=== PATIENT | female | born 1960 | race Asian ===

== ENCOUNTER 2019-07-24 14:03 | Inpatient (IN) | payer BC ==
[~2019-07-24] VITALS: Ht 160 cm; Wt 55.7 kg
[2019-07-24 14:55] VITALS: BP 117/75
--- NOTE | 2019-07-24 14:56 | NUR ---
PT ARRIVES TO FLOOR VIA CART ACCOMPNIED BY AMBULANCE PERSONEL FROM [facility]. PER REPORT CALLED FROM [facility] IN ER PT BROUGHT IN BY FOR INCREASING CONFUSION,DISORIENTATION AT HOME-PT REPORTED TO HAVE A SEIZURE MAY 2019 AND SINCE THAT TIME HAS HAD POOR SLEEP,DISORIENTATION AND "TRANCE-LIKE" BEHAVIOR PER AFFIDAVIT FROM . MADE COMMENTS TO THAT SHE WANTED TO HURT HERSELF AND STATED SHE "COULDN'T GO ON LIKE THIS ANYMORE" PT DENIES S/SJ[facility] DURING ADMIT INTERVIEW-IS TEARFUL AND WITHDRAWN PULLING BLANKET OVER HEAD-STATES SEVERAL TIMES "I HAVE BEEN HAVING TROUBLE WITH MY MEMORY I THINK IT IS THAT SEIZURE MEDICATION I HAVE BEEN ON IT TOO LONG" DENIES C/O PAIN/DISCOMFORT.GAIT STEADY WITHOUT ASSISITVE DEVICES
[2019-07-24] MEDS ORDERED: KEPPRA XR500 MG PO (17:06)
[2019-07-24] MEDS ORDERED: VALIUM5 MG PO (17:08)
[2019-07-24 19:30] VITALS: BP 115/67
[2019-07-24 19:30] LABS: HEMATOCRIT 41.1 % (37.0-47.0); HEMOGLOBIN 13.6 gm/dL (12.0-15.0); MCH 31.4 pg (26.0-34.0); MCHC 33.1 g/dL (28.0-37.0); RBC 4.33 mil/uL (4.20-5.00); RDW 13.1 % (10.5-14.5); WBC 5.4 thou/uL (4.0-11.0)
[2019-07-24 19:43] LABS: ALBUMIN 3.5 g/dL (3.4-5.0); CALCIUM 8.8 mg/dL (8.5-10.1); CREATININE 1.1 mg/dL (0.6-1.0); MAGNESIUM 2.3 mg/dL (1.8-2.4); POTASSIUM 4.1 mmol/L (3.5-5.1); TOTAL BILIRUBIN 0.9 mg/dL (<0.1-1.0)
--- NOTE | 2019-07-24 23:13 | NUR ---
Care assumed of patient at 1915: Patient standing in dayroom at start of shift but quickly retired to bed. Patient laying in bed during nursing assessment. Patient alert and oriented to person and place. Patient confused and forgetful on current time and situation. Patient denies pain or discomfort. Denies SI/HI/AH/VH. Patient holding blanket over her face during most of assessment. Patient has 2 reddened spots to top of forehead. However, her thumbs were resting on the 2 reddened spots before skin was assessed. Patient asked nurse to turn light off due to it "burning her skin". Light was turned off. Patient had difficulty making eye contact during assessment. Patient having concrete thinking in that her face is burning off and that she is admitted due to her seizure medication. Patient states that her seizure medication makes her "act this way". Patient admits that she doesn't feel "normal" and "feels goofy". Patient reluctant to take HS medication at first but did comply. Ate 100% HS snack. Patient face appears oily and states that she needs more lotion. Patient has lotion available in her room which was shown to her. Patient states she needs "the prescription stuff". Patient has been resting quietly in her bed this evening.
--- NOTE | 2019-07-25 05:45 | NUR ---
Patient approached the nurses station demanding a sleeping pill at 0500. Patient educated on current time but that she does have a coughing pill available if she desired. Patient became irritable immediately. Patient then started to demand her clothing. Demanding breakfast. Exit seeking. Pushing and banging on exit doors. Patient educated on need to care for other patients then a look for her clothing would take place. Patient also educated the need to speak with the doctor today regarding her inability to sleep. Patient then went and hid in another patient's room behind the door. Security staff x3 and nursing staff x3 searched for patient. Patient screaming, fighting, escorted to the quiet room. Patient requested to use the bathroom. Patient allowed with female staff x2. Patient sat in bathroom for 10+ minutes and needed escorted to quiet room for injection to be administered. Required to be held for injection due to hitting, punching, kicking. Order obtained for seclusion at 0528. Patient banging the door, screaming, disrupting environment. Calling staff very vulgar, profanity names. Gissel Beckman RN, laborer hide house present. Staff currently standing 1:1 outside door to monitor safety.
[2019-07-25 09:15] VITALS: BP 144/78
--- NOTE | 2019-07-25 10:04 | NUR ---
Patient approached NIGHT ORDER SELECTOR at nurses station asking for assistance dialing phone number with unit wireless phone as she does not have her glasses with her. A few minutes later, pt was heard in her room beligerently yelling while using phone. NIGHT ORDER SELECTOR and HEALTH DIRECTOR approached pt in her room to give her a warning that phone privileges could be revoked if patient does not appropriately use telephone. NIGHT ORDER SELECTOR and HEALTH DIRECTOR exited room as pt stood up and slammed her door shut and continued to yell. Staff re entered room to gather phone at which time pt threw phone to ground knocking batteries and back of phone apart. Pt was warned that she was destructing hospital property. Upon hearing this, pt sat "properly on bed" crossing her hands, stating, "well, I just dropped it. It was an accident" then began cursing NIGHT ORDER SELECTOR and HEALTH DIRECTOR to leave room.
[2019-07-25 10:16] VITALS: BP 144/78
--- NOTE | 2019-07-25 12:45 | NUR ---
New order recieved from, Dr. Zavala, read back and verified. 1) Nursing may suspend phone privileges if patient continues to abuse phone privileges i.e. yelling on the phone and throwing the phone.
--- NOTE | 2019-07-25 13:11 | NUR ---
SW met with spouse Cristopher and pt with Dr chauhan. This included meds review and social HX. SW completed the intake assessent and TP. I twas established that pt and her spouse have been self adjusting medication dosages, and have not conuslted a psych Dr for her mental health needs. Pt was seeing a therapist very briefly but spouse is not confinced it was " working ". Pt was hostile and blamed spouse for all of the symptoms of her obessions and physical concerns. SW provided education and reassurance about the inpt psych stay and the importance to adhere to Dr recommedations.
--- NOTE | 2019-07-25 13:48 | NUR ---
Assumed care at 0700. Patient alert and oriented x4. Gets easily agitated over small stuff: breakfast is two minutes late, a nurse didnt give her what she wanted. She keeps on saying that she doesn't like it here she needs to go to her house where there are no rules. She complains that we are giving her Keprra and its the one that is messing up with her mind that she is the way she is right now. visiteed today and she kept yelling at him throught the visit. Earlier today she was given a phone to talk to the spouse but she kept on cursing, shouting, and yelling on phone. BAG BUILDER requested her to stop yelling but she got so mad and threw the phone down and the part shattered allover on the floor. There is an order for patients owho cant use the phone appropriately to loose the privilige until they improve. Patients has been cursing the nurse and telling her to back to her country. Physician is aware of her cursing and being disrespectiful to staff. Dr. Zavala is working on changing her medication to see if that will help with her mood as well taking care of the seizures. Will continue with the plan of care.
--- NOTE | 2019-07-25 17:18 | EKG ---
[facility] [place] [address] ELECTROCARDIOGRAM REPORT Name: POLLY DE ANDA [facility] M.R[facility] [id number] Admission: 07/24/19 Attend Phys: Fidel Zavala DO Discharge: Date of : 56 Report #: [id number] THIS REPORT FOR: cc: FAM - Family physician unknown FAM - Family physician unknown Yonatan Aparicio MD ~ THIS REPORT FOR: //name// [facility] Test Date: 2019-07-24 Test Time: 19:26:55 Pat Name: POLLY DE ANDA Department: Room: [facility] B Gender: F Health Technical Writer: Ashley WELDON : 1960 Requested By: Gallo Vaughan Order Number: [id number] MD: Yonatan Aparicio Measurements Intervals [place] Rate: 80 P: 45 NC: 121 QRS: 54 QRSD: 79 T: 53 QT: 389 QTc: 449 Interpretive Statements Sinus rhythm No previous ECG available for comparison Electronically Signed On 07-25-2019 17:16:53 CDT by Yonatan Aparicio [email or web address] <ELECTRONICALLY SIGNED> By: Yonatan Aparicio MD 07/25/191715 25 25 Yonatan Aparicio MD /EPI
--- NOTE | 2019-07-25 18:25 | NUR ---
Patient continues to be verbally abusive to the nurse. She tried to hit the nurse this afternoon by slammed the door and throwing a punch. because she the nurse refused to give the phone. This prompted her curse more and telling the nurse "Go back to your country you came here because of poverty to come and use [place] foodstamps and exhaust the country econommy." Patient went to the room for few minutes then dinner time she came out and she was more calm. Patient keeps coming to the nurse station asking for thermostat adjustments. When we turn it down she complain it's too cold, then when we turn it up she complains its cold. Dr. Zavala has talked to her this evening and she says that she will improve.Will continue with the plan of care.
[2019-07-25 19:23] VITALS: BP 103/67
--- NOTE | 2019-07-26 01:40 | NUR ---
Care assumed of patient at 191: Patient standing at nurses station at start of shift. Patient needed re-directed several times to move from nurses station due to shift report. Patient having several requests, very difficult to re-direct. Patient requesting phone. Patient notified that she would need to wait until after shift report. Patient became agitated, calling nurse vulgar names, verbally threatening nurse. Patient was then notified she will not be able to use the phone this shift due to behaviors. Patient attempted to convince nurse that she will "be better" then went to dayroom and sat down. Appoximately 5 minutes later, patient approached nurses station. Nurse was on the phone, patient knocking on glass at nurses station and yelling "nurse" over and over. Patient had to be re-directed to move away from the nurses station and nurse would be with her shortly. Patient demanding lotion, chapstick, cough drop, new socks, box of Kleenex, new underwear. Persistantly demanding. After 1:1 with patient, she was able to sit in dayroom, interact with peer and have HS snack. Patient provided HS medication whole. Patient requested PRN Benzonatate for her cough. However, cough had not been observed or reported. Patient sarcastic and manipulative with staff. Patient started to demand the phone again. Patient was told not until she could have calm, respectful behavior. Patient then asked if nurse would call her because she wanted him to bring clothing and she was tired of wearing scrubs. Nurse agreed and asked patient to make a list of what she would like him to bring. Patient stating she needs her creams, lotions, supplements. Patient notified that those materials are not allowed on the unit and she has lotion provided. Patient then asked if nurse would do a "small little something special" for her. Patient started to smile, look at the ground and asked for another snack. Patient notified she already had her snack and she was not allowed any other snack. Patient turned from smiling and innocent to yelling, hostile, vulgar. was called, as she requested, and will bring 2 sets of clothing. However, patient kept banging on nurses station glass while nurse was attempting to speak with . Patient returned to nurses station approximately 1 hour after receiving medication and requested a cough drop. Nurse notified her that she already received PRN Benzonatate which is sufficient. Patient then started to cough, stating the medication wasn't working. Patient re-directed back to her room. Due to attention seeking, somatic complaints, intrusive behavior, verbal aggression, agitation, Dr. Zavala was notified and order obtained for Geodon 20mg IM 1x dose. Security notified. Medication administered with nurse x1 and security x2. Nurse asked patient to lay on bed for medication to be administered. Patient upset that security was notified. Does not seem to recall behaviors from previous night, stating she is not an aggressive person. Patient calling nurse several vulgar names. Medication was administered and patient was able to calm down after approximately 1 hour. Patient retired to bed and has been able to rest quietly.
[2019-07-26 13:14] VITALS: BP 120/80
--- NOTE | 2019-07-26 14:25 | NUR ---
0700 ASSUMED CARE OF PATIENT. PATIENTIN ROOM AWAKE AT THAT TIME. PATIENT DENIED NEEDS. PATIENT OUT TO DAYROOM FOR BREAKFAST, EATING WELL. MEDS TAKEN WITHOUT DIFFICULTY. PATIENT HAS A FLAT AFFECT AND SITS AT TABLE QUIETLY. LUNG SOUNDS CLEAR, BS NOTED X4, DENIES PAIN. PATIENT STATES HAVING DEPRESSION AND IS MAD AT HERSELF STATING "MY SKIN IS A MESS BECAUSE I DID THIS". DENIES SI/HI/AH/VH. PATIENTS GOAL FOR THE DAY IS TO GET BACK INTO THE SWING FOR HER GRANDDAUGHTER, DAUGHTER AND . PATIENTS CONCERN IS HER MEMORY, EYE SIGHT AND SCARED FACE. PATIENT ASKS ABOUT USING THE PHONE AND WELT WHEELER TALKS TO HER ABOUT RULES AND HAVING PRIVLEDGES TO USE THE PHONE. WELT WHEELER EXPLAINED THAT THROWING THE PHONE, CUSING, RAISING HER VOICE WOULD BE A REASON TO GET THE PRIVLEDGES TAKEN AWAY. PATIENT VOICED UNDERSTANDING. 1200 PATIENT HAD A VISITOR AND STARTS TO GET LOUD WHILE VISITING WITH . WELT WHEELER EXPLAINED THAT SHE HAD TO BE RESPECTFUL WITH OTHERS. PATIENT VOICED UNDERSTANDING. WILL CONTINUE TO OBSERVE FOR BEHAVIORS.
[2019-07-26 20:14] VITALS: BP 114/69
[2019-07-26 21:00] VITALS: BP 114/69
--- NOTE | 2019-07-27 00:43 | NUR ---
Assumed care of patient this pm shift. Patient sitting in the mileu talking with peers. Patient appears to be in good spirits. Patients affect is blunted. Patient denies hi/si. Patient denies pain. Patient states that her face is pock marked and scarred and that after a dental visit resulting in a crown, she feels like the crown is catching food and also draining from her sinuses. Patient is very fixated on her facial appearance. Patient states that she had a tranquilizer the last two nights due to behaviors and that the tranquilizer helped her sleep. Patient also very concerned about not being able to sleep. mainspring fabrication supervisor practitioner called and patient given trazadone to help with insomnia. Patients assessment shows clear breath sounds, active bowel sounds, and s1 s2 heard with auscultation. We will continue to monitor.
[2019-07-27 08:59] VITALS: BP 131/69
[2019-07-27 15:51] VITALS: BP 131/69
--- NOTE | 2019-07-27 16:23 | NUR ---
PATIENT WAS UP AND OUT IN DAY ROOM EATING BREAKFAST WHEN CARE ASSUMED. PATIENT QUESTIONS HER MEDICATIONS, BUT TAKES THEM WHOLE EVENTUALLY. PATIENT PARTICIPATED IN GROUP THERAPY, INTERACTING WELL WITH STAFF, AND PEERS. PATIENT DENIES SUICIDAL/HOMICIDAL IDEATION. SHE RATED DEPRESSION 5/10, STATES "I AM ANXIOUS BECUASE I AM HERE, I WANT TO GO HOME". PATIENT DENIES HAVING PHYSICAL PAIN, REPORT HAD BOWEL MOVEMENT THIS MORNING. NO AGITATION OR AGGRESSIVE BEHAVIOR NOTED AT THIS TIME. PATIENT IS CALM, COOPERATIVE WITH CARE. AFFECT IS SAD, MOOD IS DEPRESSED, NO SIGN OF ACUTE DISTRESS NOTED, WILL MONITOR FOR SAFETY.
[2019-07-27 20:30] VITALS: BP 112/70
--- NOTE | 2019-07-27 21:31 | H ---
[facility] [place] [address] [place] [address] HISTORY AND PHYSICAL Name: POLLY DE ANDA Room #: 528B-B ADM IN M.R.#: [id number] Admission: 07/24/19 Attend Phys: Fidel Zavala DO Discharge: Date of : 56 Report #: [id number] THIS REPORT FOR: cc: NICO - Family physician unknown FAM - Family physician unknown Fidel Zavala DO ~ CC: Fidel WALSH unknown DATE OF SERVICE: 07/24/2019 INPATIENT PSYCHIATRIC EVALUATION ATTENDING PSYCHIATRIST: Fidel Zavala DO PREVENTIVE MEDICINE PHYSICIAN: Gallo Vaughan MD REASON FOR ADMISSION: Psychosis. SOURCES OF INFORMATION: Records from [facility] where she was transferred from, interview with the patient, only brief one nursing notes. HISTORY OF PRESENT ILLNESS: This is a 59-year-old female apparently brought to [facility] by her . The patient was complaining of itchiness having a little bit of burning and scratching her forehead. According to the ER, when asked if she was having thoughts of harming herself, the patient states "I just have a lot of itching." The patient does not answer questions directly and this was a telemedicine consultation. She reports things about dental procedures and previous inpatient medical hospitalizations. She did admit to "I have been overall the ordinary," admitted that she has started smoking again. When the patient was asked if she remembers making suicidal statements or threats last night, she states "I am not sure what I am going to do I just want to talk about my skin care with my zipper trimmer because my lips messed up. I went to the dentist and got dental work which didnt work..... It is not from that injury." When asked if she has been hearing voices or experiencing hallucinations, she states "well I had a seizure there, they put me on some seizure medication." Of note, the patient did have a seizure in May and was placed on Keppra. She reports that the medication has caused confusion and her medications for other bizarre behavior. When asked about other bizarre behavior such as dipping a towel in toilet and wiping the floor with it, the patient states "I felt like I had a urine infection because I was going to the bathroom so much." The patient's filled out the affidavit. Reports the patient told him she no longer wanted to live. Affidavit also lists several bizarre behaviors of the patient going "into a trance, not responding," forgetting often what she was doing, so staring at doors with her hand on the door down for long periods of time, she put the wet clothes from the washer on [facility] [address] [place] [address] HISTORY AND PHYSICAL Name: POLLY DE ANDA Room #: 528B-B ADM IN M.R.#: [id number] Admission: 07/24/19 Attend Phys: Fidel Zavala DO Discharge: Date of : 56 Report #: [id number] to the floor and started an empty cloth drier. The medical Emergency Room reports that the patient's told him that the patient had a gun to her head. Denied threatening suicide. Evidently, the refused to put that information in the affidavit due to bizarre behavior and SI when she is lucid. The patient was not safe to discharge home. On interview in the Psychiatric Unit, the patient was focused on her face burning. She uses supposedly Madara skin cream. The patient appeared to be a bit bewildered some bizarre moving, forward stopping, looking around and suggesting she is responding to external stimuli. Additional information from the affidavit that the wrote "my has been depressed and suffered from anxiety for several weeks. She had a seizure early May 2019 and really has not been the same." The states he has been trying to be supportive and help her, but she is getting worse. "Today on 07/23/2019, she was acting strange and was disoriented. She repeated herself constantly asking the same questions over and over, no matter how I answered, she would ask again. At times, she appeared to be in trance and would not respond to me. She smokes several cigarettes a day, sometimes she has not done for quite a while. She kept wanting me to open the garage door, so she could get in and did not make any sense." Apparently, he saw her take a billing coordinator and put it under running water. When asked what she was doing, she did not respond. In addition, the behaviors described in the ER note apparently on the way to the hospital, she opened the van door and tried to jump out and when she got to the hospital, she tried to run. Information included in the notes from [facility]. No criminal history. She is unsure of her occupation. PAST SURGICAL HISTORY: She had a breast augmentation with prosthetic implant. No family history was on file. LABORATORY DATA: UDS is positive for benzodiazepines. Alcohol less than 10. Sodium 137, potassium 3.6, chloride 103, bicarbonate 30, anion gap 5, calcium 9.5, glucose 119, BUN 21, creatinine 0.7, EGFR female non- 85. White count 7.77, hemoglobin 13.2, hematocrit 39, MCV was 92, and platelet count 244. Salicylate less than 1, acetaminophen less than 10. Seen by Dr. Sinha in the ER. VITAL SIGNS: Temperature 36.6, pulse 95, respirations 22, BP 117/75. MUSCULOSKELETAL: Wearing paper scrubs. MENTAL STATUS EXAMINATION: This is a well-developed, somewhat thin-appearing female, unkempt. Attention limited. Concentration limited. Speech generally normal rate. Thought process nonlinear, tangential at times. Thought content focussed somatically with me. No psychomotor agitation, no psychomotor retardation. Denied SI or HI. Denied hopelessness, helplessness. Memory not formally tested today. Denied SI or HI on the unit. Insight limited. Judgment limited. Fund of knowledge, no greater than average. FORMULATION: A 59-year-old female [place] [address] HISTORY AND PHYSICAL Name: POLLY DE ANDA Room #: 528B-B ADM IN M.R.#: [id number] Admission: 07/24/19 Attend Phys: Fidel Zavala DO Discharge: Date of : 56 Report #: [id number] behaviors. There are several concerning things including new onset seizure disorder or use of Keppra. DIAGNOSES: Psychosis, unspecified, rule out drug-induced psychosis versus bipolar 1 disorder. PLAN: Evaluate, stabilize, obtain collateral. Will need to get much more information from the . For the time being, I started her back on Keppra 500 mg twice a day. We will consider tapering that off, but I want to find out about her seizure phenomenon she was put it on for, will have to monitor closely over the next several days. ESTIMATED LENGTH OF STAY: 10-14 days. STRENGTHS: She is and has family support. WEAKNESSES: Psychotic illness. Her weight is 53.977 kilos, height 160 cm, BMI 21.1. Time spent on interview, review of records, coordination of care about 45 minutes. <ELECTRONICALLY SIGNED> By: Fidel Zavala DO 07/27/19 2131 [id number] [id number] Fidel Zavala DO /nt
--- NOTE | 2019-07-27 22:51 | NUR ---
Care of patient assumed at 1915: Patient seated in dayroom at start of shift. Alert and oriented to person and place only. Confused and forgetful on current time and situation. Patient interacting with staff and peers. Patient has had some impulsive behaviors observed but has been able to be re-directed without difficulty. Patient approached nurses station during shift change. Patient asked to have a seat and new nurse would be with her in the next 15 minutes. Patient stated OK, thank you, and went to dayroom to sit down. Patient has been calm, pleasant and cooperative. Patient ate 100% HS snack. Education provided with each HS medication. Patient then took whole without difficulty. Patient did request PRN Trazodone to help her sleep tonight. Patient did state that she hasn't slept in weeks, which is not accurate from previous shifts. Patient did not have any bizarre behaviors or statements observed. Patient asked several questions but has not repeated questions or been fixated on them, once they were answered. Patient was able to retire to bed at a reasonable hour. Patient has been up a couple times but is able to lay down and fall asleep without difficulty.
[2019-07-28 08:00] VITALS: BP 120/67
[2019-07-28 12:10] VITALS: BP 120/67
--- NOTE | 2019-07-28 16:08 | NUR ---
PATIENT REMAIN FORGETFUL, AND PRESENTS WITH INTERMITTENT CONFUSION. PATIENT HAS BEEN UP, AND OUT ON THE UNIT, PARTICIPATING IN GROUP THERAPY. PATIENT IS EATING MEALS, AND DRINKING FLUID WELL. PATIENT DENIES SUICIDAL/HOMICIDAL IDEATION. SHE TOOK ALL MEDICATION WHOLE WITHOUT DIFFICULTY. PATIENT DENIES SUICIDAL/HOMICIDAL IDEATION. SHE RATED BOTH DEPRESSION/ANXIETY 5/10. PATIENT IS CALM, COOPERATIVE WITH CARE. MOOD IS HAPPY, AFFECT IS BRIGHT. PATIENT DENIES HAVING PHYSICAL PAIN, NO SIGN OF ACUTE DISTRESS NOTED AT THIS TIME, WILL MONITOR FOR SAFETY.
[2019-07-28 20:23] VITALS: BP 128/82
--- NOTE | 2019-07-28 23:40 | NUR ---
Care assumed of patient at 1915: Patient seated in dayroom, watching TV at start of shift. Interacting well with peers. Patient irritable and sarcastic at times during shift. Patient demanding regarding some of her needs. Patient requested for bed to be adjusted, thermostat to be adjusted, cream for her face, "diapers" due to leaking, etc. Patient impatient for nurse to provide her requests. Standing at the nurses station, knocking on nurses station glass. Suspicious affect. Alert and oriented to person and place. Disoriented on current time. Feels she is admitted due to use of seizure medication Keppra. Patient denies depression and anxiety. Denies SI/HI/AH/VH. Denies pain or discomfort. Intrusive while nurse is providing cares to other patients. Needed several re-direction to respect boundaries of others. Patient animated and hyperactive at times. Patient took HS medication whole with education. Ate 100% HS snack. Patient labile at times. Patient seated with nurse smiling and talking then starts to call nurse a "bitch" and making demeaning statements to several nurses about where they inquired their education and how nobody knows how to do their jobs. Patient asked to step away from the nurses station several times which she refused to do. Patient retired to bed with some difficulty but has been able to rest quietly since doing so.
[2019-07-29 08:37] VITALS: BP 114/72
--- NOTE | 2019-07-29 12:23 | NUR ---
WHEN QUESTIONED ABOUT CIRCUMSTANCES LEADING TO ADMIT AND WHY SHE IS HERE DURING AM 1;1-MS ASSESSMENT STATES "TODAY IS NEW DAY I DON'T WANT TO TALK ABOUT THE PAST I WANT TO MOVE FORWARD" DEMANDING AND IRRITABLE WITH NURSING STAFF-WILL INTERRUPT CONVERSATION BETWEEN THIS NURSE AND ANOTHER PT TO TELL ME HER CHICKEN STRIPS WERE OVERCOOKED AND DEMANDED A NEW "ORDER" DURING AM MEDICATIONS PASS WOULD TAKE 1/2 DOSE OF AM TRILEPTAL-STATING "THE DOCTOR DIDN'T SAY ANYTHING TO ME ABOUT INCREASING THE DOSE" SOCIAL WITH PEERS-ABRUPT WITH NURSING STAFF
[2019-07-29 20:52] VITALS: BP 134/77
--- NOTE | 2019-07-30 03:16 | NUR ---
PATIENT ASSESSED AND IS ALERT X 2-3. SKIN WARM AND DRY. RESP EVEN AND UNLABORED. DENIES ANY PAIN. 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 ALSO TAKS MEDICATION WELL WITH WATER. SLEEPING WELL. LUNGS CTA. UP AD REYNOLD IN ROOM AND HALLWAYS WITH STEADY GAIT. REQUESTED A SLEEPING PILL AT HS. NO BIZARRE BEHAVIORS NOTED THIS SHIFT SO FAR. HAS BRUSING ON ARMS AND HANDS. DENIES AND SI/HI THOUGHTS. CONT PLAN OF CARE.
[2019-07-30 08:24] VITALS: BP 122/68
--- NOTE | 2019-07-30 10:42 | NUR ---
BECAME UPSET WITH THIS NURSE WHEN GIVEN LIP/MOUTH MOISTERIZER ORDERED BY DR. ORNELAS. "I ALREADY HAVE THIS I NEED SOMETHING ELSE FOR THIS CRACK ON THE SIDE OF MY MOUTH IT IS BURNING" RAISED VOICE SEVERAL TIMES AT THIS NURSE AND STATES"WHY ARE YOU JUST NODDING YOUR HEAD LIKE YOU ARE STUPID" TO DAYROOM AND VENTING FRUSTRATION TO FEMALE PEERS-CONTINUES TO STATE SHE NEEDS NEOSPORIN.
--- NOTE | 2019-07-30 16:47 | NUR ---
Date of Admission: 07/24/19 Date of Activity Therapy Assessment: 07/28/2019 Activity Goal: Reality Orientation Initial Goal: Two RT groups per day Weekly progress towards goal:Did not achieve Group participation level: Moderate Behaviors observed: Moderate particpation in groups. Negative attitue at times. Takes time to trust peers and staff. Participation increasing. Plan: No change towards goal
[2019-07-30 19:31] VITALS: BP 110/82
[2019-07-30 21:10] VITALS: BP 110/82
--- NOTE | 2019-07-30 23:51 | NUR ---
PATIENT IS A/0X2-3. PATIENT VISITED WITH OTHER PATIENT'S IN THE DAYROOM TONIGHT BEFORE GOING BACK TO HER ROOM TO LOOK AT HER FACE. PATIENT IS CONCERNED ABOUT SPOTS ON HER FACE FROM WHERE SHE HAS SCARS OR SCRATCHED/DUG AT BEFORE. PATIENT CRYING AND UPSET ABOUT PAST DECISIONS SHE MADE TO HAVE TEETH FIXED AND THE OUTCOME. 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 HER FACE DOES NOT LOOK BAD. THE AREAS ARE MINUTE AND HAS SOME DRY PATCHES. AQUAPHOR APPLIED TO AREAS. PATIENT CALMED AFTER TALKING WITH HER 1:1, CONSOLING, ACTIVE LISTENING, ENCOURAGING, GOAL DIRECTING. PATIENT ENCOURAGED TO STAY IN PRESENT AND MOVE FORWARD. SHE DOES HAVE OCCASIONAL FLEETING THOUGHT THAT SHE WISHES SHE WASN'T HERE (ALIVE) BUT IS ABLE TO STOP THE THOUGHT AND MOVE FORWARD. PATIENT SLEEPING AT THIS TIME. DENIES PAIN. CONTINUING TO MONITOR.
--- NOTE | 2019-07-31 05:28 | NUR ---
PATIENT UP THIS AM AND TAKING A SHOWER AND WASHING HAIR THIS MORNING. PATIENT IS CALM AND COOPERATIVE AND CONCERNED ABOUT HOW HER FACE LOOKS BUT NOT NOT DWELLING ON IT SO FAR.
[2019-07-31 06:36] LABS: ALBUMIN 3.7 g/dL (3.4-5.0); CALCIUM 8.6 mg/dL (8.5-10.1); CREATININE 0.8 mg/dL (0.6-1.0); POTASSIUM 4.4 mmol/L (3.5-5.1); TOTAL BILIRUBIN 0.3 mg/dL (<0.1-1.0); TOTAL PROTEIN 6.8 g/dL (6.4-8.2)
[2019-07-31 08:50] VITALS: BP 100/54
--- NOTE | 2019-07-31 09:27 | NUR ---
Sw completed chart review and pt seems to responding well to treatment. Pt will likely be ready to d/c this week, this a recomendation for PHP ot IOP.
--- NOTE | 2019-07-31 12:16 | NUR ---
RIZWANA called and spoke with Nickolas spouse about d/c tomorrow and PHP with [facility]. RIZWANA set up a fmaily meeting for discharge at 11AM. Reported this to Dr chauhan.
--- NOTE | 2019-07-31 12:22 | NUR ---
Up ambulating in unit without s/o distress. Calm and cooperative, compliant with meds. Alert and orientated X4, denies SI/HI. Concerned with skin on face, states she is unable to apply makeup d/t caking up on dry skin. Breath sounds clear t/o, bilaterally equal. Reg HR auscultated. Color pink with brisk capillary refill and palpable peripheral pulses. Independent with voiding. Active bowel sounds over soft, flat abdomen. Reg, steady gait with ambulation. Participating in groups and conversing with peers.
[2019-07-31 19:00] VITALS: BP 130/70
[2019-07-31 21:45] VITALS: BP 130/70
--- NOTE | 2019-08-01 01:08 | NUR ---
PATIENT HAS BEEN BUSY PACKING SINCE SHE IS EXCITED ABOUT BEING D/C'D HOME TODAY. SHE WENT TO BED AROUND 0. SHE HAS BEEN PLEASANT AND COOPERATIVE. SHE HAS NOT BEEN OBSESSING OVER HER FACE MUCH TONIGHT. MICRONAZOLE CREAM PLACED AT EDGE OF LIPS BILATERAL. SHE CONTINUES TO USE AQUAPHOR TO FACE ALSO. PATIENT HAD SOME SMALL PEELING ON BOTTOM OF RIGHT GREAT TOE FROM HER SANDAL AND ALSO DRY CRACKED SKIN. AQUAPHOUR APPLIED TO THESE AREAS AND BANDAID AROUND THE GREAT TOE. SHE STATES THIS HAS INCREASED HER COMFORT. SHE DENIES ANY OTHER DISCOMFORT. PATIENT IS INDEPENDENT WITH CARES. HER BEHAVIORS ARE APPROPRIATE. NO CRYING OR FEELINGS OF SI/HI/AVH. PATIENT SLEEPING AT THIS TIME. BED IN LOW POSITION. ROUTINE ROUNDING TO EVALUATE SAFETY.
[2019-08-01 07:48] VITALS: BP 119/70
[2019-08-01 08:48] VITALS: BP 119/70
--- NOTE | 2019-08-01 10:13 | NUR ---
07/30 Devin met with pt to discuss d/c plans and DEVIN empahsized the importance of her attending a PHPO. She was adament she that could not, so Devin suggeted at least the IOP. Pt agreed to do this. Devin then called and spoke with pt's Cristopher and confirmed this d/c plan . DEVIN made a packet and left it on the chart. DEVIN also called [facility] to confirm they were still taking IOP patients. Devin faxed the d/c summary and orders to [facility] [phone]. DEVIN left fax confimration and fax packet on the chart. Devin advised pt's spouse to pepper picker curbside at d/c today at [address] chauhan and Devin spoke with Cristopher and confimed the d/c plans and the importance of the IOP. This was all reported to nursing.
[2019-08-01] MEDS ORDERED: OXCARBAZEPINE300 MG PO (10:29)
[2019-08-01] MEDS ORDERED: TRAZODONE HCL50 MG PO (10:29)
[2019-08-01] MEDS ORDERED: CALTRATE-600 W1 EACH PO (10:30)
[2019-08-01] MEDS ORDERED: ZYPREXA 5 MG TAB5 MG PO (10:30)
[2019-08-01] MEDS ORDERED: ACEROLA C500 MG PO (10:31)
[2019-08-01] MEDS ORDERED: VITAMIN D325 MCG PO (10:31)
--- NOTE | 2019-08-01 11:24 | NUR ---
DISCHARGE INSTRUCTIONS REVIEWED WITH PATIENT INCLUDING FOLLOW UP APPOINTMENTS,MEDICATIONS DOSING,TIMES INDICATION AT TIME OF DC. DENISA BRENDATYLER CONTACTED AT [phone] RE[address] PLASENCIA AND EDUCATION COMPLETED WITH DENISA WELL-BOTH POLLY AND ONESIMO REPORT UNDERSTANDING AND DENY QUESTIONS/CONVERNS. NEW RX CALLED INTO [facility] PER REQUEST. HOME MEDICATIONS RETEIVED FROM PHARMACY AND PERSONAL BELONGINGS CHECKED AGAINST ADMIT INVENTORY BY PT AND THIS RN-PT REPORTS HAVING ALL BELONGINGS AT TIME OF DC. DISCHARGED VIA WC ACCOMPNIED BY THIS RN TO DENISA AND PRIVATE VEHICLE. UP IN MOOD AT DC-DENIES SI/SH/HI AT TIME OF DC
--- NOTE | 2019-08-01 11:28 | NUR ---
RIZWANA recieved a vm after pt discharged from [facility] that their intake was remote and for the pt to call [phone]. RIZWANA called adn left a VM for Cristopher regarding this change.
--- NOTE | 2019-08-03 22:37 | D ---
[facility] [place] [address] DISCHARGE SUMMARY Name: POLLY DE ANDA Room #: 528B-B DIS IN M.R.#: [id number] Admission: 07/24/19 Attend Phys: Fidel Zavala DO Discharge: 08/01/19 Date of : 56 Report #: [id number] THIS REPORT FOR: cc: NICO - Family physician unknown FAM - Family physician unknown Fidel Zavala DO ~ THIS REPORT FOR: //name// CC: Fidel WALSH unknown DATE OF SERVICE: 08/01/2019 INPATIENT PSYCHIATRIC DISCHARGE SUMMARY ATTENDING PSYCHIATRIST: Fidel Zavala DO CENTRAL SUPPLY TECHNICIAN: Reji Massey MD DISCHARGE DIAGNOSES: Technically, unspecified psychosis; however, the patient is suspected of having bipolar disorder. The patient had several confounding factors including recent change to Keppra and that medication was discontinued this admission due to concerns of adverse psychiatric side effects. Additionally, the patient has a history of misuse of benzodiazepines, specifically being on diazepam, switched through her outpatient doctor to clonazepam, running out of it and then taking it upon herself to medicate with diazepam. She was taking up to 30 mg a day prior to admission. Also with respect to the Keppra, the patient had decreased from 500 b.i.d. to 500 mg daily. She has dry facial skin she views as some more serious skin disorder; however, it was managed with Lotrimin on the unit. DISCHARGE DIET: Regular. DISCHARGE MEDICATIONS: Trileptal 150 mg p.o. b.i.d. for seizure prophylaxis as well as mood stabilization, trazodone 50 mg p.o. at bedtime for sleep, olanzapine 10 mg p.o. b.i.d. for psychosis, calcium carbonate 500 mg p.o. 3 times a day for supplementation, vitamin C 500 mg p.o. daily for supplementation, cholecalciferol 5000 international units p.o. daily for supplementation. Keppra and diazepam were discontinued obviously this admission. ACTIVITY LEVEL: As tolerated. No alcohol, no illicit drugs. Aftercare for this patient has been a bit of challenge as she was resistant to going to an IOP or PHP program, as well as the situation that we are facing closure of those programs at many clinics due to the coronavirus. She is strongly encouraged to get an intake at [facility] for services in general. She is reporting that she [address] [address] DISCHARGE SUMMARY Name: POLLY DE ANDA Room #: 528B-B [facility] IN M.R.#: [id number] Admission: 07/24/19 Attend Phys: Fidel Zavala, Discharge: 08/01/19 Date of : 56 Report #: [id number] has a psychiatrist appointment sometime in August. She was unclear of the doctor. Also, she sees a therapist due to being on probation, but that is once a month. She would not give the details of that this admission. REASON FOR ADMISSION: Back on 07/24/2019 or so, the patient was transferred from [facility] where apparently, the patient was brought by her . She was complaining of somatic complaints like itching and appeared to be out of sorts, so she was given one of the tools of psych assessments, which recommended admission. Also, allegedly she tried to open the van door and jump out on the way to the hospital. HOSPITAL COURSE: The patient was admitted to Geriatric Psychiatry Unit. The patient was initially irritable, hostile. I was able to get the history from her Cristopher, elected to discontinue the Keppra, start her on Trileptal. I did immediately start antipsychotic olanzapine titrated to 10 mg twice per day. Her sleep normalized. The patient did maintain some unrealistic thinking of taking care of her granddaughter in the afternoons and evenings and showing some lack of priority to her mental health. The patient and her were counseled on these concerns. DIAGNOSTIC DATA: Electrocardiogram this admission, QTC 449, QT 389, AR interval 121, but rate of 80 in sinus rhythm. LABORATORY DATA: CBC within normal limits. Chemistries grossly normal. Vitamin B12 level 1124. Keppra level was negligible as again she was poorly compliant with that the week or so prior to admission. PHYSICAL EXAMINATION: VITAL SIGNS: On the day of discharge, temperature 37.0, pulse 85, respirations 16, BP 119/70, O2 sat 96%. MUSCULOSKELETAL: Normal gait and station. MENTAL STATUS EXAMINATION: This is a well-developed, fairly nourished female, appearing younger than stated age. Attention fair. Concentration fair. Speech is normal rate. Thought process linear and goal oriented. Thought content focused on discharge, going home, taking care of her granddaughter, various obligations. No psychomotor retardation. Denied SI or HI. Denied auditory, visual, or tactile hallucinations. Memory not formally tested on the day of discharge. Insight limited. Judgment fair. Fund of knowledge, no greater than average. PROGNOSIS: For this patient is guarded and will depend on her degree of [facility] [address] [place] [address] DISCHARGE SUMMARY Name: POLLY DE ANDA Room #: 528B-B DIS IN M.R.#: [id number] Admission: 07/24/19 Attend Phys: Fidel Zavala DO Discharge: 08/01/19 Date of : 56 Report #: [id number] compliance and pursuit of psychiatric treatment as clearly she is challenged by some of the recommendations myself and the protective services social worker at this admission. <ELECTRONICALLY SIGNED> By: Fidel Zavala DO 08/03/19 [id number] Fidel Zavala DO /nt
== END 2019-08-01 11:15 | disposition home or self-care (01) | DRG 885 ==
LOC: SBH 14:03
PROVIDERS: Internal Medicine; Psychiatry & Neurology Psychiatry; ADMIT Psychiatry & Neurology Psychiatry
DX: F29 Unspecified psychosis not due to a substance or known physiological condition (principal); F31.9 Bipolar disorder, unspecified; G40.909 Epilepsy, unspecified, not intractable, without status epilepticus; Z79.899 Other long term (current) drug therapy
CPT/HCPCS: 10880